=== PATIENT | female | born 1995 | race Caucasian/White ===

== ENCOUNTER 2016-08-04 14:30 | Outpatient (CLI) | payer OTHER ==
[2016-08-06 05:10] LABS: HEP B CORE AB TOTAL Negative (Negative); HEP B SURFACE AB QL Reactive; HEP C ANTIBODY 0.1 s/co ratio (0.0-0.9)
== END 2016-08-04 14:50 | disposition home or self-care (01) ==
LOC: LAB 14:30
PROVIDERS: ATTEND Emergency Medicine
DX: Z20.828 Contact with and (suspected) exposure to other viral communicable diseases (principal)
CPT/HCPCS: 86704-90; 86706-90; 86803-90; 87340-90; 87389-90